=== PATIENT | female | born 1950 | race African-American/Black ===

== ENCOUNTER 2018-01-08 16:23 | Emergency (ER) | payer BC ==
[~2018-01-08] VITALS: Ht 149.9 cm; Wt 75.4 kg
[2018-01-08 17:46] LABS: HEMATOCRIT 41.2 % (36.0-46.0); HEMOGLOBIN 13.6 G/DL (11.9-15.5); MCH 28.8 PG (29.0-34.0); MCV 87.3 FL (83-99); RBC DIS.WIDTH-CV 14.6 % (11.8-14.6); RBC DIS.WIDTH-SD 46.6 % (39-53); RED BLOOD COUNT 4.72 M/uL (3.80-5.20); WHITE BLOOD COUNT 9.7 K/uL (4.1-10.2)
[2018-01-08 17:54] LABS: CHLORIDE 98 mEq/L (99-109); POTASSIUM 3.7 mEq/L (3.7-5.4); SODIUM 135 mEq/L (136-147)
[2018-01-08 17:56] LABS: GLUCOSE 95 mg/dL (70-99)
[2018-01-08 18:00] LABS: CREATININE 0.9 mg/dL (0.6-1.3); GFR ESTIMATE (CALCULATED) > 59 mL/min/
[2018-01-08 18:01] LABS: UREA NITROGEN (BUN) 10 mg/dL (9-23)
[2018-01-08 18:07] LABS: TROP-I INTERPRETATION NEGATIVE; TROPONIN-I < 0.01 ng/mL (0.0-0.30)
[2018-01-08 18:36] LABS: PLAT.SUFFICIENCY ADEQUATE; PLATELET COUNT UNABLE TO REPORT K/uL (156-360)
[2018-01-08 19:10] VITALS: BP 120/74
== END 2018-01-08 19:20 | disposition home or self-care (01) ==
LOC: EME 16:23
PROVIDERS: Emergency Medicine
DX: R07.9 Chest pain, unspecified (principal); M79.605 Pain in left leg; J45.909 Unspecified asthma, uncomplicated; E78.5 Hyperlipidemia, unspecified; I10 Essential (primary) hypertension; M81.0 Age-related osteoporosis without current pathological fracture; I34.1 Nonrheumatic mitral (valve) prolapse; Z87.891 Personal history of nicotine dependence; Z88.8 Allergy status to other drugs, medicaments and biological substances
CPT/HCPCS: 71046; 80048; 84484; 85027; 93005; 93971; 99281; 99283